=== PATIENT | female | born 1950 | race Caucasian/White ===

== ENCOUNTER → 2016-08-29 | Outpatient (REF) | payer MEDICARE | LOC: M SMT 13:23 | PROVIDERS: ATTEND Nurse Practitioner Women's Health | DX: N39.0 Urinary tract infection, site not specified (principal) ==

== ENCOUNTER → 2016-11-23 | Outpatient (REF) | payer MEDICARE | LOC: M LAB REF 13:28 | PROVIDERS: ATTEND Internal Medicine Medical Oncology | DX: D61.818 Other pancytopenia (principal) ==

== ENCOUNTER → 2016-11-24 | Outpatient (REF) | payer MEDICARE | LOC: M SFHCWAGY 11:29 | PROVIDERS: ATTEND Nurse Practitioner Women's Health | DX: Z12.72 Encounter for screening for malignant neoplasm of vagina (principal) ==

== ENCOUNTER → 2016-11-24 | Outpatient (CLI) | payer MEDICARE ==
--- NOTE | 2016-11-24 13:09 | REPMRS ---
Patient History The patient states she had a clinical breast exam in 11/14 Patient is postmenopausal and has history of ovarian cancer at age 51. No known family history of cancer. Took hormonal contraceptives for 3 years. Digital Woman Screen Mammo: November 24, 2016 - Exam #: [id number] Bilateral CC and MLO view(s) were taken. Technologist: Anyi Avendano, Technologist Prior study comparison: October 14, 2015, digital woman screen mammo performed at [facility]. October 13, 2014, digital woman screen mammo performed at [facility] to [facility]. FINDINGS: There are scattered fibroglandular densities. There has been no change in the appearance of the mammogram from the prior studies. There is a mild amount of residual fibroglandular tissue which is fairly symmetric. There is no interval development of dominant mass, architectural distortion, or clustered microcalcification suggestive of malignancy. ASSESSMENT: BI-RADS/ACR category 1 mammogram. Negative. Recommendation Routine screening mammogram in 1 year (for women over age 40). This mammogram was interpreted with the aid of an FDA-approved computer-aided dectection system. Electronically Signed By: Xavier Mcleod MD 11/24/16 [id number]
== END ==
LOC: M WHC 11:17
PROVIDERS: ATTEND Nurse Practitioner Women's Health
DX: Z12.31 Encounter for screening mammogram for malignant neoplasm of breast (principal); Z78.0 Asymptomatic menopausal state; Z92.0 Personal history of contraception; Z12.12 Encounter for screening for malignant neoplasm of rectum; Z12.72 Encounter for screening for malignant neoplasm of vagina
CPT/HCPCS: 82270; G0101; G0123; G0202

== ENCOUNTER → 2016-12-27 | Outpatient (CLI) | payer MEDICARE ==
--- NOTE | 2016-12-27 15:33 | REP ---
Left lower extremity Duplex Doppler venous ultrasound: Real time compression and duplex Doppler interrogation of the left lower extremity deep venous system is performed. The left common femoral, superficial femoral and popliteal veins are fully compressible with transducer pressure and demonstrate normal spontaneous and phasic flow, without evidence of deep venous thrombosis. Impression: No evidence of deep venous thrombosis of the left lower extremity femoral popliteal venous system. Signed by Xavier Mcleod MD 12/27/2016 03:24 P
== END ==
LOC: M RAD 14:34
PROVIDERS: ATTEND Family Medicine
DX: R60.9 Edema, unspecified (principal); M79.605 Pain in left leg

== ENCOUNTER → 2017-01-11 | Outpatient (CLI) | payer MEDICARE ==
[2017-01-11 10:46] LABS: ALBUMIN 2.7 GM/DL (3.2-5.2); ALBUMIN/GLOBULIN RATIO 0.66 (1.00-1.93); BILIRUBIN,TOTAL 0.6 MG/DL (0.2-1.0); CALCIUM LEVEL 8.6 MG/DL (8.8-10.2); CREATININE FOR GFR 1.05 MG/DL (0.55-1.02); GLOMERULAR FILTRATION RATE 55.7 (>45); POTASSIUM SERUM 3.8 MEQ/L (3.5-5.1); TOTAL PROTEIN 6.8 GM/DL (6.4-8.2)
== END ==
LOC: M LAB 09:48
PROVIDERS: ATTEND Family Medicine
DX: R60.9 Edema, unspecified (principal)

== ENCOUNTER → 2017-01-18 | Outpatient (REF) | payer MEDICARE | LOC: M SMT 17:24 | PROVIDERS: ATTEND Nurse Practitioner Women's Health | DX: R30.9 Painful micturition, unspecified (principal) | CPT/HCPCS: 51798; 81001; 87086; G0463 ==

== ENCOUNTER → 2017-03-22 | Outpatient (CLI) | payer MEDICARE ==
[2017-03-22 09:15] LABS: YEAST LIKE CELL URINE AUTO MODERATE
[2017-03-22 09:35] LABS: ALBUMIN 2.7 GM/DL (3.2-5.2); ALBUMIN/GLOBULIN RATIO 0.69 (1.00-1.93); BILIRUBIN,TOTAL 0.8 MG/DL (0.2-1.0); CALCIUM LEVEL 8.1 MG/DL (8.8-10.2); CREATININE FOR GFR 1.26 MG/DL (0.55-1.02); GLOMERULAR FILTRATION RATE 45.1 (>45); POTASSIUM SERUM 3.8 MEQ/L (3.5-5.1); TOTAL PROTEIN 6.6 GM/DL (6.4-8.2)
== END ==
LOC: M LAB 08:22
PROVIDERS: ATTEND Family Medicine
DX: R60.9 Edema, unspecified (principal)

== ENCOUNTER → 2017-04-18 | Outpatient (REF) | payer MEDICARE ==
[2017-04-18 14:37] LABS: COMPLEMENT C4 18.5 MG/DL (10-40)
[2017-04-18 21:40] LABS: SQUAMOUS EPITHELIAL CELL URINE SMALL AMOUNT /hpf (SMALL AMT); WBC, URINE 0-1 /hpf (0-3)
[2017-04-18 21:41] LABS: BACTERIA, URINE NONE SEEN; HYALINE CAST, URINE NONE SEEN /lpf (0-1); MICROSCOPIC EXAM PERFORMED
[2017-04-19 14:30] LABS: PERCENT SATURATION 31.8 % (13.2-45.0)
== END ==
LOC: M LAB REF 13:36
PROVIDERS: ATTEND Internal Medicine Nephrology
DX: N18.3 Chronic kidney disease, stage 3 (moderate) (principal); I12.9 Hypertensive chronic kidney disease with stage 1 through stage 4 chronic kidney disease, or unspecified chronic kidney disease; M32.9 Systemic lupus erythematosus, unspecified; D69.6 Thrombocytopenia, unspecified; R31.9 Hematuria, unspecified; D64.9 Anemia, unspecified; R80.9 Proteinuria, unspecified; R94.5 Abnormal results of liver function studies

== ENCOUNTER → 2017-04-28 | Outpatient (CLI) | payer MEDICARE ==
--- NOTE | 2017-04-28 15:19 | REP ---
CT of the abdomen pelvis without IV or bowel contrast: There are no comparisons. The visualized lung cerrato are unremarkable except for linear scarring in the right lower lobe. The unenhanced hepatic parenchyma demonstrates nodularity of the hepatic margin particularly inferiorly in the right lower lobe. This is not compatible with hepatic ascites disease, particularly cirrhosis. There are numerous calculi in the gallbladder. There is no biliary duct dilatation. The pancreas and spleen are normal size and unremarkable. The adrenals are unremarkable. There is a left renal 4.2 cm cyst. The unenhanced kidneys are otherwise unremarkable. There is no hydronephrosis. No renal calculi are identified. The abdominal aorta is unremarkable except for occasional small calcific pleural plaques. The bowel and mesentery are unremarkable. There is a midline small fat-containing ventral hernia above the umbilicus. Pelvis: There is a hysterectomy. Vaginal cuff and adnexa are unremarkable. The bladder is unremarkable. There is no adenopathy or ascites. The pelvic bowel loops are unremarkable. The appendix has a normal appearance. Impression: Cholelithiasis, the gallbladder appears to be intact with a small gallbladder calculi. Left renal cyst. Hysterectomy. Small fat-containing midline ventral hernia. Otherwise, essentially negative CT of the abdomen and pelvis. There is no hydronephrosis. Signed by Xavier Garcia MD 04/28/2017 03:10 P
== END ==
LOC: M RAD 11:00
PROVIDERS: ATTEND Internal Medicine Nephrology
DX: N18.3 Chronic kidney disease, stage 3 (moderate) (principal); R31.9 Hematuria, unspecified

== ENCOUNTER → 2017-05-12 | Outpatient (CLI) | payer MEDICARE ==
[2017-05-12 11:15] LABS: EOS # 0.3 10^3/uL (0.0-0.50); EOS % 7.9 % (0.0-3.0); IMMATURE GRANULOCYTE % 0.3 % (0-0); LYMPH # 1.4 10^3/uL (1.5-4.5); LYMPH % 35.3 % (24.0-44.0); MEAN CORPUSCULAR HEMOGLOBIN 32.7 pg (27.0-33.0); MEAN CORPUSCULAR HGB CONC 32.7 g/dl (32.0-36.5); MONO # 0.3 10^3/uL (0.0-0.8); MONO % 7.6 % (0.0-5.0); NEUTROPHILS # 1.8 10^3/uL (1.8-7.7); NEUTROPHILS % 47.9 % (36.0-66.0); RED CELL DISTRIBUTION WIDTH 13.9 % (11.5-14.5); WHITE BLOOD COUNT 3.8 10^3/uL (4.0-10.0)
[2017-05-12 11:18] LABS: PLATELET COUNT, AUTOMATED 93 10^3/uL (150-450)
[2017-05-12 11:19] LABS: PLATELET F 91
[2017-05-12 11:20] LABS: IMMATURE PLATELET FRACTION % 2.8 % (0.0-9.6)
[2017-05-12 11:53] LABS: ALBUMIN 2.9 GM/DL (3.2-5.2); ALBUMIN/GLOBULIN RATIO 0.73 (1.00-1.93); BILIRUBIN,DIRECT 0.2 MG/DL (0.0-0.2); BILIRUBIN,TOTAL 0.7 MG/DL (0.2-1.0); CALCIUM LEVEL 8.5 MG/DL (8.8-10.2); CREATININE FOR GFR 1.33 MG/DL (0.55-1.02); GLOMERULAR FILTRATION RATE 42.2 (>45); PHOSPHORUS LEVEL 2.9 MG/DL (2.5-4.9); POTASSIUM SERUM 4.3 MEQ/L (3.5-5.1); TOTAL PROTEIN 6.9 GM/DL (6.4-8.2)
== END ==
LOC: M LAB 10:11
PROVIDERS: ATTEND Nurse Practitioner Family
DX: Z79.899 Other long term (current) drug therapy (principal)

== ENCOUNTER → 2017-05-19 | Outpatient (CLI) | payer MEDICARE ==
[2017-05-19 17:47] LABS: BASO % 0.7 % (0.0-1.0); EOS # 0.2 10^3/uL (0.0-0.50); EOS % 5.4 % (0.0-3.0); IMMATURE GRANULOCYTE % 0.2 % (0-0); LYMPH # 1.7 10^3/uL (1.5-4.5); LYMPH % 39.5 % (24.0-44.0); MEAN CORPUSCULAR HEMOGLOBIN 32.8 pg (27.0-33.0); MEAN CORPUSCULAR HGB CONC 32.8 g/dl (32.0-36.5); MONO # 0.3 10^3/uL (0.0-0.8); MONO % 7.6 % (0.0-5.0); NEUTROPHILS % 46.6 % (36.0-66.0); PLATELET COUNT, AUTOMATED 105 10^3/uL (150-450); RED CELL DISTRIBUTION WIDTH 14.2 % (11.5-14.5); WHITE BLOOD COUNT 4.2 10^3/uL (4.0-10.0)
[2017-05-19 18:02] LABS: ALBUMIN 3.1 GM/DL (3.2-5.2); CALCIUM LEVEL 9.2 MG/DL (8.8-10.2); CREATININE FOR GFR 1.39 MG/DL (0.55-1.02); GLOMERULAR FILTRATION RATE 40.1 (>45); MAGNESIUM LEVEL 1.8 MG/DL (1.8-2.4); PHOSPHORUS LEVEL 3.1 MG/DL (2.5-4.9); POTASSIUM SERUM 4.2 MEQ/L (3.5-5.1); URIC ACID 4.9 MG/DL (2.6-6.0)
[2017-05-19 18:09] LABS: INR 1.34
== END ==
LOC: M SMT 11:45
PROVIDERS: ATTEND Internal Medicine Nephrology
DX: N18.3 Chronic kidney disease, stage 3 (moderate) (principal); D69.6 Thrombocytopenia, unspecified; I12.9 Hypertensive chronic kidney disease with stage 1 through stage 4 chronic kidney disease, or unspecified chronic kidney disease; D64.9 Anemia, unspecified; R94.5 Abnormal results of liver function studies

== ENCOUNTER → 2017-05-22 | Outpatient (REF) | payer MEDICARE | LOC: M LABSMT 17:13 | PROVIDERS: ATTEND Internal Medicine Nephrology | DX: N18.3 Chronic kidney disease, stage 3 (moderate) (principal); D69.6 Thrombocytopenia, unspecified; R94.5 Abnormal results of liver function studies; I10 Essential (primary) hypertension; D64.9 Anemia, unspecified ==

== ENCOUNTER → 2017-06-14 | Outpatient (REF) | payer MEDICARE ==
[2017-06-14 20:08] LABS: IMMUNOGLOBULIN G 1240 MG/DL (681-1648); IMMUNOGLOBULIN M 60.4 MG/DL (40-230); TOTAL PROTEIN 6.5 GM/DL (6.4-8.2)
[2017-06-15 15:32] LABS: ALBUMIN % 46.2 % (55.8-66.1)
[2017-06-17 00:07] LABS: FREE KAPPA LIGHT CHAINS SERUM 78.2 mg/L (3.3-19.4); FREE LAMBDA LIGHT CHAINS SERUM 75.2 mg/L (5.7-26.3); KAPPA/LAMBDA RATIO SERUM 1.04 (0.26-1.65)
== END ==
LOC: M LAB REF 17:00
PROVIDERS: ATTEND Internal Medicine Medical Oncology
DX: D61.818 Other pancytopenia (principal)

== ENCOUNTER → 2017-06-26 | Outpatient (CLI) | payer MEDICARE ==
--- NOTE | 2017-06-26 14:28 | REP ---
Clinical: Cough . Comparison: None . Technique: PA and lateral. Findings: The mediastinum and cardiac silhouette are normal. The lung cerrato are clear and without acute consolidation, effusion, or pneumothorax. The skeletal structures are intact and normal. Impression: 1. No acute cardiopulmonary process. Signed by Hayden Park MD 06/26/2017 02:20 P
== END ==
LOC: M RAD 14:02
PROVIDERS: ATTEND Family Medicine
DX: R05 Cough (principal)

== ENCOUNTER → 2017-07-07 | Outpatient (CLI) | payer MEDICARE ==
[~2017-07-07] MED LIST: BIMA01SOL OU; CALC600T60 PO; GLIP10TA PO; JANU25TA PO; LISI10TA4 PO; SIMV40TA2 PO; TRES1INJ2 SC; VITA10002 PO; [UNRECOGNIZED DRUG - CODE] PO
[2017-07-07 08:01] LABS: BASO % 0.7 % (0.0-1.0); EOS # 0.2 10^3/uL (0.0-0.50); EOS % 5.3 % (0.0-3.0); IMMATURE GRANULOCYTE % 0.2 % (0-0); LYMPH # 1.3 10^3/uL (1.5-4.5); LYMPH % 30.8 % (24.0-44.0); MEAN CORPUSCULAR HEMOGLOBIN 32.2 pg (27.0-33.0); MEAN CORPUSCULAR HGB CONC 32.6 g/dl (32.0-36.5); MEAN CORPUSCULAR VOLUME 98.7 fl (80.0-96.0); MONO # 0.4 10^3/uL (0.0-0.8); MONO % 10.4 % (0.0-5.0); NEUTROPHILS # 2.2 10^3/uL (1.8-7.7); NEUTROPHILS % 52.6 % (36.0-66.0); RED CELL DISTRIBUTION WIDTH 13.8 % (11.5-14.5); WHITE BLOOD COUNT 4.2 10^3/uL (4.0-10.0)
[2017-07-07 08:18] LABS: INR 1.45
[2017-07-07 08:26] LABS: PLATELET COUNT, AUTOMATED 96 10^3/uL (150-450)
[2017-07-07 08:27] LABS: IMMATURE PLATELET FRACTION % 2.8 % (0.0-9.6)
== END ==
LOC: M LAB 07:33
PROVIDERS: ATTEND Internal Medicine Nephrology
DX: D64.9 Anemia, unspecified (principal); D69.6 Thrombocytopenia, unspecified

== ENCOUNTER 2017-07-11 06:07 | Outpatient (CLI) | payer MEDICARE ==
[2017-07-11 06:58] LABS: IMMEDIATE SPIN CROSSMATCH 1
[2017-07-11] MEDS: FUROSEMIDE 40 MG/4 ML VIAL (J1940) IV (10:40)
[2017-07-11 11:02] LABS: TYPE AND SCREEN 1
[2017-07-11] MEDS ORDERED: LIDOCAINE 1% MDV 20ML VIAL As Ordered (12:23)
[2017-07-11 13:32] LABS: IMMEDIATE SPIN CROSSMATCH 1 2
== END 2017-07-11 16:50 | disposition home or self-care (01) ==
LOC: M INFU 06:07
DX: D61.818 Other pancytopenia (principal); R94.4 Abnormal results of kidney function studies; R80.9 Proteinuria, unspecified; I10 Essential (primary) hypertension; N17.9 Acute kidney failure, unspecified; Z85.43 Personal history of malignant neoplasm of ovary; Z85.42 Personal history of malignant neoplasm of other parts of uterus; Z88.0 Allergy status to penicillin; Z88.5 Allergy status to narcotic agent; Z91.040 Latex allergy status; Z79.82 Long term (current) use of aspirin; Z79.899 Other long term (current) drug therapy
CPT/HCPCS: 50200

== ENCOUNTER → 2017-07-20 | Outpatient (REF) | payer MEDICARE | LOC: M LAB REF 16:49 | PROVIDERS: ATTEND Internal Medicine Nephrology | DX: N03.8 Chronic nephritic syndrome with other morphologic changes (principal); D64.9 Anemia, unspecified; R05 Cough; R80.9 Proteinuria, unspecified ==

== ENCOUNTER → 2017-10-02 | Outpatient (REF) | payer MEDICARE ==
[2017-10-02 13:52] LABS: TOTAL PROTEIN,RANDOM URINE 26.9 MG/DL (0.0-12.0)
== END ==
LOC: M LAB REF 12:51
DX: N18.3 Chronic kidney disease, stage 3 (moderate) (principal); N03.8 Chronic nephritic syndrome with other morphologic changes
CPT/HCPCS: 84156

== ENCOUNTER → 2017-10-24 | Outpatient (REF) | payer MEDICARE ==
[2017-10-25 13:42] LABS: MICROSCOPIC EXAM PERFORMED
[2017-10-25 13:43] LABS: HYALINE CAST, URINE NONE SEEN /lpf (0-1); RBC, URINE 15-20 /hpf (0-3); SQUAMOUS EPITHELIAL CELL URINE LARGE AMOUNT /hpf (SMALL AMT)
[2017-10-25 13:44] LABS: BACTERIA, URINE MOD AMOUNT; MUCUS, URINE SMALL AMOUNT (NEGATIVE); YEAST, URINE LARGE AMOUNT
== END ==
LOC: M LAB REF 13:10
DX: N18.3 Chronic kidney disease, stage 3 (moderate) (principal); N03.8 Chronic nephritic syndrome with other morphologic changes
CPT/HCPCS: 81015

== ENCOUNTER → 2017-11-16 | Outpatient (REF) | payer MEDICARE ==
[2017-11-16 14:39] LABS: FERRITIN 35 NG/ML (8-252); IRON (FE) 55 UG/DL (50-170); PERCENT SATURATION 17.9 % (13.2-45.0); TOTAL IRON BINDING CAPACITY 307 UG/DL (250-450)
== END ==
LOC: M LAB REF 13:38
DX: D64.9 Anemia, unspecified (principal)
CPT/HCPCS: 83550

== ENCOUNTER 2017-12-06 08:34 | Outpatient (CLI) | payer MEDICARE ==
[2017-12-06 10:45] LABS: IMMEDIATE SPIN CROSSMATCH 1 2
[2017-12-06] MEDS: ACETAMINOPHEN 325 MG TAB PO (10:48)
[2017-12-06] MEDS: diphenhydrAMINE 25 MG CAP PO (10:48)
== END 2017-12-06 15:15 | disposition home or self-care (01) ==
LOC: M INFU 08:34
DX: D64.9 Anemia, unspecified (principal); N19 Unspecified kidney failure; I10 Essential (primary) hypertension; E11.9 Type 2 diabetes mellitus without complications; M54.9 Dorsalgia, unspecified; Z79.4 Long term (current) use of insulin; Z79.899 Other long term (current) drug therapy; Z91.040 Latex allergy status; Z88.0 Allergy status to penicillin; Z88.8 Allergy status to other drugs, medicaments and biological substances; Z90.711 Acquired absence of uterus with remaining cervical stump; Z85.43 Personal history of malignant neoplasm of ovary
CPT/HCPCS: 36430

== ENCOUNTER 2018-01-11 06:36 | Outpatient (CLI) | payer MEDICARE ==
[2018-01-11] MEDS: IRON SUCROSE 25 MG in NS 50 ML IV (07:15)
[2018-01-11] MEDS: IRON SUCROSE 475 MG in NS 250 ML IV (08:34)
== END 2018-01-11 12:00 ==
LOC: M INFU 06:36
DX: D50.9 Iron deficiency anemia, unspecified (principal); N18.9 Chronic kidney disease, unspecified; E11.9 Type 2 diabetes mellitus without complications; I12.9 Hypertensive chronic kidney disease with stage 1 through stage 4 chronic kidney disease, or unspecified chronic kidney disease; E78.00 Pure hypercholesterolemia, unspecified; M12.9 Arthropathy, unspecified; Z79.4 Long term (current) use of insulin; Z79.82 Long term (current) use of aspirin; Z79.899 Other long term (current) drug therapy; Z80.0 Family history of malignant neoplasm of digestive organs; Z88.8 Allergy status to other drugs, medicaments and biological substances; Z91.040 Latex allergy status; Z85.43 Personal history of malignant neoplasm of ovary
CPT/HCPCS: J1756

== ENCOUNTER → 2018-01-19 | Outpatient (REF) | payer MEDICARE | LOC: M SFHCWAGY 10:30 | DX: Z12.72 Encounter for screening for malignant neoplasm of vagina (principal); Z85.42 Personal history of malignant neoplasm of other parts of uterus | CPT/HCPCS: G0123 ==

== ENCOUNTER → 2018-01-19 | Outpatient (CLI) | payer MEDICARE | LOC: M WHC 10:14 | DX: Z12.31 Encounter for screening mammogram for malignant neoplasm of breast (principal); Z92.0 Personal history of contraception; Z12.72 Encounter for screening for malignant neoplasm of vagina; Z85.42 Personal history of malignant neoplasm of other parts of uterus | CPT/HCPCS: G0123 ==

== ENCOUNTER → 2018-01-29 | Outpatient (REF) | payer MEDICARE ==
[2018-01-29 14:24] LABS: FERRITIN 255 NG/ML (8-252); IRON (FE) 60 UG/DL (50-170); PERCENT SATURATION 25.2 % (13.2-45.0); TOTAL IRON BINDING CAPACITY 238 UG/DL (250-450)
== END ==
LOC: M LAB REF 13:18
DX: D64.9 Anemia, unspecified (principal)
CPT/HCPCS: 83550

== ENCOUNTER 2018-01-31 09:33 | Outpatient (CLI) | payer MEDICARE ==
[2018-01-31 11:30] LABS: IMMEDIATE SPIN CROSSMATCH 1 2
[2018-01-31] MEDS: diphenhydrAMINE 25 MG CAP PO (11:30)
[2018-01-31] MEDS: ACETAMINOPHEN TAB 650MG DOSE (2X325MG) PO (11:30)
== END 2018-01-31 17:16 | disposition home or self-care (01) ==
LOC: M OPCLI5PR 09:33 → M MS5PR 09:39 → M OPCLI5PR 17:16
DX: N18.9 Chronic kidney disease, unspecified (principal); D63.1 Anemia in chronic kidney disease; Z79.82 Long term (current) use of aspirin; Z79.4 Long term (current) use of insulin; Z79.899 Other long term (current) drug therapy
CPT/HCPCS: 36430

== ENCOUNTER 2018-02-12 09:19 | Day surgery (SDC) | payer MEDICARE ==
[~2018-02-12 09:19] MED LIST changes: +ACETAMINOPHEN 325 MG TAB PO; -BIMA01SOL OU; -CALC600T60 PO; -GLIP10TA PO; -JANU25TA PO; -LISI10TA4 PO; +PHENYLEPHRINE HCL 10 % OPHTH. SOL 5ML OD; -SIMV40TA2 PO; -TRES1INJ2 SC; -VITA10002 PO; -[UNRECOGNIZED DRUG - CODE] PO
[2018-02-12] MEDS ORDERED: TROPICAMIDE 1% OPHTH SOLN 2ML As Ordered (09:50)
[2018-02-12] MEDS ORDERED: CYCLOPENTOLATE 2% OPHTH SOLN 2ML BTL As Ordered (09:50)
[2018-02-12] MEDS ORDERED: OFLOXACIN 0.3 % (OCUFLOX) OPTH SOL 5ML As Ordered (09:50)
[2018-02-12] MEDS ORDERED: PHENYLEPHRINE 2.5% OPHTH SOL 2ML As Ordered (09:50)
[2018-02-12 10:05] LABS: BEDSIDE GLUCOSE 101 MG/DL (80-115)
[2018-02-12] MEDS: PHENYLEPHRINE 2.5% OPHTH SOL 2ML OD (10:21)
[2018-02-12] MEDS: OFLOXACIN 0.3 % (OCUFLOX) OPTH SOL 5ML OD (10:21)
[2018-02-12] MEDS: LIDOCAINE 3.5 % 1ML OPHTH TOPICAL GEL OU (10:21)
[2018-02-12] MEDS: TROPICAMIDE 1% OPHTH SOLN 2ML OD (10:22)
[2018-02-12] MEDS: CYCLOPENTOLATE 2% OPHTH SOLN 2ML BTL OD (10:22)
[2018-02-12] MEDS ORDERED: MIDAZOLAM INJ 2 MG/2 ML VIAL (J2250) As Ordered (11:14)
[2018-02-12] MEDS ORDERED: fentaNYL 100 MCG/2 ML INJECTION (J3010) As Ordered (11:14)
[2018-02-12] MEDS: POVIDONE-IODINE 5% OPHTH PREP SOL 30ML As Ordered (11:34)
[2018-02-12] MEDS: LIDOCAINE 1% SDV 5 ML VIAL As Ordered (11:44)
[2018-02-12] MEDS: MOXIFLOXACIN IN BSS 0.25MG/0.25ML INTRACAMERAL INJ (OR EYE ONLY)(J2280) As Ordered (11:47)
[2018-02-12] MEDS: TRIAMCINOLONE PRES FR 40 MG/ML 1ML(TRIESENCE)(OR EYE ONLY)(J3300 PER 1MG) As Ordered (11:47)
[2018-02-12] MEDS: BSS with VANC/TOB/EPI for EYE CASES IR (11:47)
[2018-02-12] MEDS: HEALON DUET (HEALON 10MG/ML 0.55ML & HEALON ENDOCOAT 30MG/ML 0.85ML) As Ordered ×2 (11:47→11:56)
[2018-02-12] MEDS: CEFUROXIME 1MG/0.1ML INTRACAMERAL INJ As Ordered (11:48)
[2018-02-12] MEDS ORDERED: TRIMETHOBENZAMIDE 300 MG CAP PO (12:30)
[2018-02-12] MEDS: KETOROLAC 0.5% OPHTH SOLN OD (12:40)
[2018-02-12] MEDS: AcetaZOLAMIDE 500 MG ER CAP PO (12:40)
[2018-02-12] MEDS: PROPARACAINE 0.5% OPHTH SOL 15ML OD (12:41)
== END 2018-02-12 13:40 | disposition home or self-care (01) ==
LOC: M SDC 09:19
DX: H25.9 Unspecified age-related cataract (principal); H40.812 Glaucoma with increased episcleral venous pressure, left eye; H57.03 Miosis; N18.3 Chronic kidney disease, stage 3 (moderate); I12.9 Hypertensive chronic kidney disease with stage 1 through stage 4 chronic kidney disease, or unspecified chronic kidney disease; E78.5 Hyperlipidemia, unspecified; E11.9 Type 2 diabetes mellitus without complications; E03.9 Hypothyroidism, unspecified; K21.9 Gastro-esophageal reflux disease without esophagitis; Z91.040 Latex allergy status; Z88.0 Allergy status to penicillin; Z79.4 Long term (current) use of insulin; Z79.899 Other long term (current) drug therapy
CPT/HCPCS: 66982

== ENCOUNTER 2018-02-20 16:02 | Emergency (ER) | payer MEDICARE ==
[2018-02-20 17:04] LABS: KETONE, URINE AUTO RFX NEGATIVE (NEGATIVE); LEUKOCYTE ESTERASE UR AUTO RFX NEGATIVE (NEGATIVE); MUCUS, URINE RFX SMALL (NEGATIVE); NITRITE, URINE AUTO RFX NEGATIVE (NEGATIVE); RBC, URINE AUTO RFX 39 /HPF (0-3); SPECIFIC GRAVITY UR AUTO RFX 1.012 (1.002-1.035); SQUAM EPITHELIAL CELL UR AURFX 2 /HPF (0-6); WBC, URINE AUTO RFX 0 /HPF (0-3)
== END 2018-02-20 18:05 | disposition home or self-care (01) ==
LOC: M ED 16:02
DX: N30.01 Acute cystitis with hematuria (principal); I10 Essential (primary) hypertension; K21.9 Gastro-esophageal reflux disease without esophagitis; R51 Headache; E03.9 Hypothyroidism, unspecified; F32.9 Major depressive disorder, single episode, unspecified; Z87.440 Personal history of urinary (tract) infections; Z88.8 Allergy status to other drugs, medicaments and biological substances; Z91.040 Latex allergy status; Z79.899 Other long term (current) drug therapy; Z79.4 Long term (current) use of insulin
CPT/HCPCS: 81001

== ENCOUNTER 2018-02-21 09:13 | Day surgery (SDC) | payer MEDICARE ==
[~2018-02-21 09:13] MED LIST changes: -PHENYLEPHRINE HCL 10 % OPHTH. SOL 5ML OD
[2018-02-21] MEDS ORDERED: CYCLOPENTOLATE 2% OPHTH SOLN 2ML BTL As Ordered (09:35)
[2018-02-21] MEDS ORDERED: PHENYLEPHRINE 2.5% OPHTH SOL 2ML As Ordered (09:35)
[2018-02-21] MEDS ORDERED: OFLOXACIN 0.3 % (OCUFLOX) OPTH SOL 5ML As Ordered (09:35)
[2018-02-21] MEDS ORDERED: TROPICAMIDE 1% OPHTH SOLN 2ML As Ordered (09:35)
[2018-02-21 09:57] LABS: BEDSIDE GLUCOSE 130 MG/DL (80-115)
[2018-02-21] MEDS: TROPICAMIDE 1% OPHTH SOLN 2ML OS (10:00)
[2018-02-21] MEDS: OFLOXACIN 0.3 % (OCUFLOX) OPTH SOL 5ML OS (10:00)
[2018-02-21] MEDS: PHENYLEPHRINE 2.5% OPHTH SOL 2ML OS (10:00)
[2018-02-21] MEDS: CYCLOPENTOLATE 2% OPHTH SOLN 2ML BTL OS (10:00)
[2018-02-21] MEDS: PHENYLEPHRINE HCL 10 % OPHTH. SOL 5ML OS (10:00)
[2018-02-21] MEDS: LIDOCAINE 3.5 % 1ML OPHTH TOPICAL GEL OU (10:00)
[2018-02-21] MEDS: LIDOCAINE 1% SDV 5 ML VIAL As Ordered (10:15)
[2018-02-21] MEDS: POVIDONE-IODINE 5% OPHTH PREP SOL 30ML As Ordered (10:15)
[2018-02-21] MEDS: BSS with VANC/TOB/EPI for EYE CASES IR (10:15)
[2018-02-21] MEDS: HEALON DUET (HEALON 10MG/ML 0.55ML & HEALON ENDOCOAT 30MG/ML 0.85ML) As Ordered (10:15)
[2018-02-21] MEDS ORDERED: fentaNYL 100 MCG/2 ML INJECTION (J3010) As Ordered (10:17)
[2018-02-21] MEDS ORDERED: MIDAZOLAM INJ 2 MG/2 ML VIAL (J2250) As Ordered (10:17)
[2018-02-21] MEDS: CEFUROXIME 1MG/0.1ML INTRACAMERAL INJ As Ordered (10:27)
[2018-02-21] MEDS ORDERED: TRIMETHOBENZAMIDE 300 MG CAP PO (11:00)
[2018-02-21] MEDS: PROPARACAINE 0.5% OPHTH SOL 15ML OS (11:20)
[2018-02-21] MEDS: AcetaZOLAMIDE 500 MG ER CAP PO (11:20)
[2018-02-21] MEDS: KETOROLAC 0.5% OPHTH SOLN OS (11:20)
== END 2018-02-21 11:40 | disposition home or self-care (01) ==
LOC: M SDC 09:13
DX: H25.9 Unspecified age-related cataract (principal); H40.812 Glaucoma with increased episcleral venous pressure, left eye; E78.00 Pure hypercholesterolemia, unspecified; E11.9 Type 2 diabetes mellitus without complications; I12.9 Hypertensive chronic kidney disease with stage 1 through stage 4 chronic kidney disease, or unspecified chronic kidney disease; K21.9 Gastro-esophageal reflux disease without esophagitis; Z88.0 Allergy status to penicillin; Z91.040 Latex allergy status; Z88.8 Allergy status to other drugs, medicaments and biological substances; Z79.899 Other long term (current) drug therapy; Z79.4 Long term (current) use of insulin; F32.9 Major depressive disorder, single episode, unspecified; N18.9 Chronic kidney disease, unspecified
CPT/HCPCS: 66984

== ENCOUNTER → 2018-03-23 | Outpatient (REF) | payer MEDICARE ==
[2018-03-23 14:51] LABS: FERRITIN 169 NG/ML (8-252)
== END ==
LOC: M LAB REF 13:08
DX: D61.818 Other pancytopenia (principal); D50.9 Iron deficiency anemia, unspecified
CPT/HCPCS: 82728

== ENCOUNTER 2018-06-20 11:38 | Emergency (ER) | payer MEDICARE ==
[2018-06-20] MEDS: **hydrALAZINE** 10 MG TAB PO (12:27)
[2018-06-20 12:32] LABS: BASO % 0.8 % (0.0-1.0); EOS # 0.2 10^3/uL (0.0-0.50); EOS % 4.2 % (0.0-3.0); HEMATOCRIT 29.5 % (36.0-47.0); HEMOGLOBIN 9.7 g/dl (12.0-15.5); IMMATURE GRANULOCYTE % 0.6 % (0-3.0); LYMPH % 28.8 % (24.0-44.0); MEAN CORPUSCULAR HEMOGLOBIN 31.4 pg (27.0-33.0); MEAN CORPUSCULAR HGB CONC 32.9 g/dl (32.0-36.5); MEAN CORPUSCULAR VOLUME 95.5 fl (80.0-96.0); MONO # 0.3 10^3/uL (0.0-0.8); MONO % 9.1 % (0.0-5.0); NEUTROPHILS % 56.5 % (36.0-66.0); RED BLOOD COUNT 3.09 10^6/uL (4.00-5.40); RED CELL DISTRIBUTION WIDTH 13.4 % (11.5-14.5); WHITE BLOOD COUNT 3.6 10^3/uL (4.0-10.0)
[2018-06-20 13:16] LABS: ANION GAP 5 MEQ/L (8-16); BLOOD UREA NITROGEN 34 MG/DL (7-18); CALCIUM LEVEL 8.3 MG/DL (8.8-10.2); CARBON DIOXIDE LEVEL 31 MEQ/L (21-32); CHLORIDE LEVEL 106 MEQ/L (98-107); CREATININE FOR GFR 1.39 MG/DL (0.55-1.30); GLUCOSE, FASTING 262 MG/DL (70-100); POTASSIUM SERUM 5.5 MEQ/L (3.5-5.1); SODIUM LEVEL 142 MEQ/L (136-145)
[2018-06-20 14:28] LABS: APPEARANCE, URINE CLEAR (CLEAR); BACTERIA, URINE AUTO 1+ (NEGATIVE); BILIRUBIN, URINE AUTO NEGATIVE (NEGATIVE); BLOOD, URINE BLOOD 2+ (NEGATIVE); COLOR, URINE YELLOW (YELLOW); GLUCOSE, URINE (UA) AUTO 3+ mg/dL (NEGATIVE); KETONE, URINE AUTO NEGATIVE (NEGATIVE); LEUKOCYTE ESTERASE, URINE AUTO NEGATIVE (NEGATIVE); MUCUS, URINE SMALL (NEGATIVE); NITRITE, URINE AUTO NEGATIVE (NEGATIVE); PROTEIN, URINE AUTO NEGATIVE (NEGATIVE); RBC, URINE AUTO 26 /HPF (0-3); SPECIFIC GRAVITY URINE AUTO 1.009 (1.002-1.035); SQUAMOUS EPITHELIAL CELL UR AU 1 /HPF (0-6); UROBILINOGEN, URINE AUTO 0.2 mg/dL (0.0-2.0); WBC, URINE AUTO 1 /HPF (0-3)
[2018-06-20] MEDS: NS 500 ML IV (14:34)
[2018-06-20] MEDS: SOD POLYSTYRENE SULFONATE SUSP 15 GM/60 ML UD PO (14:34)
[2018-06-20] MEDS: NORCO, ANEXSIA 5/325MG TABLET (HYDROcodone/ACETAMINOPHEN) PO (15:02)
[2018-06-20] MEDS: LISINOPRIL 10 MG TAB PO (15:26)
== END 2018-06-20 15:36 | disposition home or self-care (01) ==
LOC: M ED 11:38
DX: I10 Essential (primary) hypertension (principal); E11.40 Type 2 diabetes mellitus with diabetic neuropathy, unspecified; E78.5 Hyperlipidemia, unspecified; N18.9 Chronic kidney disease, unspecified; E53.8 Deficiency of other specified B group vitamins; H40.9 Unspecified glaucoma; Z85.43 Personal history of malignant neoplasm of ovary; Z79.82 Long term (current) use of aspirin; Z79.4 Long term (current) use of insulin; Z79.899 Other long term (current) drug therapy; Z88.0 Allergy status to penicillin; Z88.8 Allergy status to other drugs, medicaments and biological substances; Z91.040 Latex allergy status
CPT/HCPCS: 71045

== ENCOUNTER 2018-07-05 09:43 | Day surgery (SDC) | payer MEDICARE ==
[~2018-07-05] VITALS: Ht 152.4 cm; Wt 69.9 kg
[~2018-07-05 09:43] MED LIST changes: -ACETAMINOPHEN 325 MG TAB PO; +ACUV0.45; +AK-T0.3S; +ASPI1TAB21 PO; +ASPI325T25 PO; +BIMA01SOL OU; +CALC600T60 PO; +CELL250C PO; +FURO40TA2 PO; +GABA-1171 PO; +GLIP10TA PO; +INSUHUMDS SC; +JANU25TA PO; +LANTINJ4 SC; +LEVO25TA5 PO; +LIDOCAINE 2% INJ 100 MG/5 ML SDV (FOR ANES.) As Ordered ONE; +LISI-542; +LISI10TA4 PO; +MACR100C43 PO; +MYCO250C PO; +NORC1TAB4 PO; +PANT40TA3 PO; +POTA20TA6 PO; +PREDOPD; +PROPOFOL 200 MG/20 ML VIAL As Ordered ONE; +SERT-155 PO; +SIMV40TA2 PO; +STEL90IN IM; +STEL90IN SQ; +TRES1INJ2 SC; +VITA10002 PO; +VITA100066 PO
[2018-07-05] MEDS ORDERED: NS 1,000 ML IV ONE (10:00)
--- NOTE | 2018-07-05 11:17 | ROOR ---
Patient Name: Shilpa Sierra Procedure Date: 07/05/2018 11:06 AM Date of : 1950 Age: 68 Room: [facility] Gender: Female Note Status: Finalized Procedure: Upper GI endoscopy Indications: Iron deficiency anemia Providers: Delvin Trivedi Jr, MD Referring MD: Daniele Johnson MD Requesting Provider: Medicines: Propofol per Anesthesia Complications: No immediate complications. Procedure: Pre-Anesthesia Assessment: - Prior to the procedure, a History and Physical was performed, and patient medications and allergies were reviewed. The patient is competent. The risks and benefits of the procedure and the sedation options and risks were discussed with the patient. All questions were answered and informed consent was obtained. Patient identification and proposed procedure were verified by the physician and the nurse in the pre-procedure area and in the procedure room. Mental Status Examination: alert and oriented. Airway Examination: normal oropharyngeal airway and neck mobility. Respiratory Examination: clear to auscultation. CV Examination: normal. ASA Grade Assessment: II - A patient with mild systemic disease. After reviewing the risks and benefits, the patient was deemed in satisfactory condition to undergo the procedure. The anesthesia plan was to use moderate sedation / analgesia (conscious sedation). Immediately prior to administration of medications, the patient was re-assessed for adequacy to receive sedatives. The heart rate, respiratory rate, oxygen saturations, blood pressure, adequacy of pulmonary ventilation, and response to care were monitored throughout the procedure. The physical status of the patient was re-assessed after the procedure. The Endoscope was introduced through the mouth, and advanced to the second part of duodenum. The upper GI endoscopy was accomplished without difficulty. The patient tolerated the procedure well. Findings: The upper third of the esophagus, middle third of the esophagus and lower third of the esophagus were normal. Diffuse moderate inflammation characterized by congestion (edema), erythema, friability and granularity was found in the cardia, in the gastric fundus and in the gastric body. Scattered severe inflammation with hemorrhage characterized by congestion (edema), erythema, friability, granularity and shallow ulcerations was found in the prepyloric region of the stomach. Biopsies were taken with a cold forceps for histology. The duodenal bulb, first portion of the duodenum and second portion of the duodenum were normal. Impression: - Normal upper third of esophagus, middle third of esophagus and lower third of esophagus. - Gastritis. - Gastritis with hemorrhage. Biopsied. - Normal duodenal bulb, first portion of the duodenum and second portion of the duodenum. Recommendation: - Discharge patient to home (ambulatory). - Return to my office in 2 weeks. Delvin Trivedi MD Delvin Trivedi Jr, MD 07/05/2018 11:17:15 AM This report has been signed electronically. Number of Addenda: 0 Note Initiated On: 07/05/2018 11:06 AM Estimated Blood Loss: Estimated blood loss: none.
--- NOTE | 2018-07-05 11:32 | ROOR ---
Patient Name: Shilpa Sierra Procedure Date: 07/05/2018 11:07 AM Date of : 1950 Age: 68 Room: [facility] Gender: Female Note Status: Finalized Procedure: Colonoscopy Indications: Iron deficiency anemia Providers: Delvin Trivedi Jr, MD Referring MD: Daniele Johnson MD Requesting Provider: Medicines: Propofol per Anesthesia Complications: No immediate complications. Procedure: Pre-Anesthesia Assessment: - Prior to the procedure, a History and Physical was performed, and patient medications and allergies were reviewed. The patient is competent. The risks and benefits of the procedure and the sedation options and risks were discussed with the patient. All questions were answered and informed consent was obtained. Patient identification and proposed procedure were verified by the physician and the nurse in the pre-procedure area and in the procedure room. Mental Status Examination: alert and oriented. Airway Examination: normal oropharyngeal airway and neck mobility. Respiratory Examination: clear to auscultation. CV Examination: normal. ASA Grade Assessment: II - A patient with mild systemic disease. After reviewing the risks and benefits, the patient was deemed in satisfactory condition to undergo the procedure. The anesthesia plan was to use moderate sedation / analgesia (conscious sedation). Immediately prior to administration of medications, the patient was re-assessed for adequacy to receive sedatives. The heart rate, respiratory rate, oxygen saturations, blood pressure, adequacy of pulmonary ventilation, and response to care were monitored throughout the procedure. The physical status of the patient was re-assessed after the procedure. The Colonoscope was introduced through the anus and advanced to the cecum, identified by appendiceal orifice and ileocecal valve. The colonoscopy was performed without difficulty. The patient tolerated the procedure well. The quality of the bowel preparation was adequate. Findings: The rectum, recto-sigmoid colon, sigmoid colon, descending colon, transverse colon, ascending colon, cecum and ileocecal valve appeared normal. Non-bleeding external and internal hemorrhoids were found during endoscopy. The hemorrhoids were Grade II (internal hemorrhoids that prolapse but reduce spontaneously) and Grade III (internal hemorrhoids that prolapse but require manual reduction). Impression: - The rectum, recto-sigmoid colon, sigmoid colon, descending colon, transverse colon, ascending colon, cecum and ileocecal valve are normal. - Non-bleeding external and internal hemorrhoids. - No specimens collected. Recommendation: - Repeat colonoscopy in 5-10 years for screening purposes. Delvin Trivedi MD Delvin Trivedi Jr, MD 07/05/2018 11:31:42 AM This report has been signed electronically. Number of Addenda: 0 Note Initiated On: 07/05/2018 11:07 AM Estimated Blood Loss: Estimated blood loss: none.
[2018-07-05 12:00] VITALS: BP 135/61
== END 2018-07-05 12:05 | disposition home or self-care (01) ==
LOC: M OPP 09:43
PROVIDERS: ATTEND Surgery
DX: D50.9 Iron deficiency anemia, unspecified (principal); K64.1 Second degree hemorrhoids; K64.2 Third degree hemorrhoids; K29.71 Gastritis, unspecified, with bleeding

== ENCOUNTER → 2018-07-11 | Outpatient (REF) | payer MEDICARE ==
[2018-07-11 14:59] LABS: FERRITIN 108 NG/ML (8-252); IRON (FE) 76 UG/DL (50-170); PERCENT SATURATION 28.7 % (13.2-45.0); TOTAL IRON BINDING CAPACITY 265 UG/DL (250-450)
== END ==
LOC: M LAB REF 13:03
DX: D64.9 Anemia, unspecified (principal)
CPT/HCPCS: 83550

== ENCOUNTER → 2018-08-24 | Outpatient (REF) | payer MEDICARE ==
[~2018-08-24] MED LIST changes: +AMLO5TAB6 PO; +CALC1CAP31 PO; -LIDOCAINE 2% INJ 100 MG/5 ML SDV (FOR ANES.) As Ordered ONE; +LISI-538 PO; -PROPOFOL 200 MG/20 ML VIAL As Ordered ONE; +SIMV10TA2 PO
== END ==
LOC: M SFHCWAGY 13:32
PROVIDERS: ATTEND Family Medicine
DX: R35.0 Frequency of micturition (principal)

== ENCOUNTER → 2018-09-14 | Outpatient (CLI) | payer MEDICARE ==
[~2018-09-14] MED LIST changes: +CIPR-250 PO; +LISI-542 PO
[2018-09-14 11:46] LABS: FREE T4 0.96 NG/DL (0.76-1.46); THYROID STIMULATING HORMONE 2.06 uIU/ML (0.358-3.740)
[2018-09-14 13:12] LABS: FREE T3 2.3 PG/ML (2.2-4.0)
== END ==
LOC: M LAB 10:21
PROVIDERS: ATTEND Physician Assistant
DX: E03.8 Other specified hypothyroidism (principal)

== ENCOUNTER → 2018-09-26 | Outpatient (REF) | payer MEDICARE ==
[2018-09-26 13:22] LABS: BACTERIA, URINE AUTO 1+ (NEGATIVE); RBC, URINE AUTO 1 /HPF (0-3); SQUAMOUS EPITHELIAL CELL UR AU 1 /HPF (0-6); WBC, URINE AUTO 1 /HPF (0-3)
== END ==
LOC: M LAB REF 12:50
PROVIDERS: ATTEND Internal Medicine Nephrology
DX: N03.8 Chronic nephritic syndrome with other morphologic changes (principal)

== ENCOUNTER → 2018-10-05 | Outpatient (REF) | payer MEDICARE ==
[2018-10-05 14:16] LABS: APPEARANCE, URINE CLEAR (CLEAR); BACTERIA, URINE AUTO NEGATIVE (NEGATIVE); BILIRUBIN, URINE AUTO NEGATIVE (NEGATIVE); BLOOD, URINE BLOOD 1+ (NEGATIVE); COLOR, URINE YELLOW (YELLOW); GLUCOSE, URINE (UA) AUTO NEGATIVE (NEGATIVE); KETONE, URINE AUTO NEGATIVE (NEGATIVE); LEUKOCYTE ESTERASE, URINE AUTO NEGATIVE (NEGATIVE); NITRITE, URINE AUTO NEGATIVE (NEGATIVE); PROTEIN, URINE AUTO NEGATIVE (NEGATIVE); RBC, URINE AUTO 29 /HPF (0-3); SPECIFIC GRAVITY URINE AUTO 1.014 (1.002-1.035); SQUAMOUS EPITHELIAL CELL UR AU 3 /HPF (0-6); UROBILINOGEN, URINE AUTO 0.2 mg/dL (0.0-2.0); WBC, URINE AUTO 1 /HPF (0-3)
== END ==
LOC: M SMT 13:23
PROVIDERS: ATTEND Nurse Practitioner Women's Health
DX: R31.21 Asymptomatic microscopic hematuria (principal)

== ENCOUNTER → 2018-10-19 | Outpatient (CLI) | payer MEDICARE ==
[2018-10-19 18:36] LABS: CALCIUM LEVEL 8.6 MG/DL (8.8-10.2); CREATININE FOR GFR 1.58 MG/DL (0.55-1.30); GLOMERULAR FILTRATION RATE 34.5 (>45)
== END ==
LOC: M SMT 13:01
PROVIDERS: ATTEND Nurse Practitioner Women's Health
DX: R31.29 Other microscopic hematuria (principal)

== ENCOUNTER → 2018-10-26 | Outpatient (CLI) | payer MEDICARE ==
[~2018-10-26] MED LIST changes: +ISOVUE-370 76% 125ML VIAL (Q9967 PER ML) As Ordered ONE
--- NOTE | 2018-10-26 16:03 | REP ---
Clinical: Microscopic hematuria. Technique: Axial precontrast, conscious enhanced, and delayed images of the abdomen and pelvis using 100 ml Isovue 370 intravenous contrast material with coronal and sagittal re-formations as well as 3-D CT urogram. Comparison: 04/28/2017. Findings: Evaluation of the urinary tract system demonstrates 3 cm left upper pole renal cyst. There is no evidence for hydroureteronephrosis, perinephric stranding, intrarenal or obstructing ureteral calculi and no obvious urinary tract mass lesion. Bilateral ureters and bladder are grossly unremarkable. Findings consistent with advanced cirrhosis including moderately shrunken liver with nodular contour, splenomegaly, marked ascites, portal venous hypertension, and suspected possible partial thrombus involving the intrahepatic portal veins. Cholelithiasis noted. Pancreas and bilateral adrenal glands are normal. The enteric system is without obstruction. Pelvis demonstrates partially collapsed normal bladder and evidence for prior hysterectomy. Abdominal aorta without aneurysm or dissection. Musculoskeletal structures demonstrate degenerative changes. Impression: 1. Urinary tract system includes 3 cm simple left renal cyst and no further obvious abnormality. 2. Advanced cirrhosis with findings as described above. 3. Cholelithiasis. Electronically Signed by Hayden Park MD 10/26/2018 03:54 P
== END ==
LOC: M RAD 14:43
PROVIDERS: ATTEND Nurse Practitioner Women's Health
DX: R31.29 Other microscopic hematuria (principal); N28.1 Cyst of kidney, acquired; K74.60 Unspecified cirrhosis of liver; K80.20 Calculus of gallbladder without cholecystitis without obstruction
CPT/HCPCS: 74178; Q9967

== ENCOUNTER → 2018-11-14 | Outpatient (REF) | payer MEDICARE ==
[~2018-11-14] MED LIST changes: +ASPI-255 PO; -ASPI325T25 PO; -ISOVUE-370 76% 125ML VIAL (Q9967 PER ML) As Ordered ONE; -NORC1TAB4 PO; +NORC1TAB7 PO
== END ==
LOC: M SMT 12:50
PROVIDERS: ATTEND Urology
DX: R31.1 Benign essential microscopic hematuria (principal)